=== PATIENT | female | born 1955 ===

== ENCOUNTER 2025-01-28 19:15 | Emergency (ER) | payer MEDICARE, OTHER ==
[~2025-01-28] VITALS: Ht 157.5 cm; Wt 54.4 kg
[2025-01-28 19:42] VITALS: BP 135/93
== END 2025-01-28 21:42 | disposition home or self-care (01) ==
LOC: ER 19:15
DX: K40.90 Unilateral inguinal hernia, without obstruction or gangrene, not specified as recurrent (principal); Z88.4 Allergy status to anesthetic agent
CPT/HCPCS: 74177; 99283-25; Q9967